=== PATIENT | female | born 1980 | race Caucasian/White ===

== ENCOUNTER 2019-08-15 12:13 | Inpatient (IN) | payer OTHER ==
[~2019-08-15] VITALS: Ht 177.8 cm; Wt 108.0 kg
[~2019-08-15 12:13] MED LIST: BETA15CR5 TP
[2019-08-15] MEDS ORDERED: LACTATED RINGERS 1,000 ML IV ONE (13:05)
[2019-08-15] MEDS ORDERED: CHLORHEXIDINE 15 ML UDC MM STA (13:05)
[2019-08-15] MEDS ORDERED: CHLORHEXIDINE 15 ML UDC ONE (13:10)
[2019-08-15] MEDS ORDERED: MIDAZOLAM 1 MG/ML, 2ML ONE (14:39)
[2019-08-15] MEDS ORDERED: PROPOFOL 50 ML ONE ×2 (14:39→16:10)
[2019-08-15] MEDS ORDERED: FENTANYL PF 250 MCG/5ML ONE (14:39)
[2019-08-15] MEDS ORDERED: VASOPRESSIN 20 UNIT/ML, 1ML ONE (14:49)
[2019-08-15] MEDS ORDERED: METHYLENE BLUE 10 MG/ML 10ML ONE (14:49)
[2019-08-15] MEDS ORDERED: BUPIVACAINE/PF-EPI 0.5% 1:200K ONE (14:49)
[2019-08-15] MEDS ORDERED: INTERCEED 3 X 4 INCH DRESSING ONE (14:49)
[2019-08-15] MEDS ORDERED: SODIUM CHLORIDE 0.9% 50 ML ONE (14:56)
[2019-08-15] MEDS ORDERED: OXYcodone 5 MG/5 ML ORAL.SOL UDC PO PRN (15:00)
[2019-08-15] MEDS ORDERED: EPHEDRINE 50 MG/ML, 1ML IVPush PRN (15:00)
[2019-08-15] MEDS ORDERED: ONDANSETRON 2MG/ML, 2ML IVPush PRN (15:00)
[2019-08-15] MEDS ORDERED: EPHEDRINE 50 MG/ML, 1ML IM PRN (15:00)
[2019-08-15] MEDS ORDERED: DIPHENHYDRAMINE 50 MG/ML, 1ML IVPush PRN (15:00)
[2019-08-15] MEDS ORDERED: PROMETHAZINE 25 MG/ML, 1ML IVPush PRN (15:00)
[2019-08-15] MEDS ORDERED: ONDANSETRON 2MG/ML, 2ML ONE (16:09)
[2019-08-15] MEDS ORDERED: DEXAMETHASONE 4 MG/ML, 1ML ONE (16:10)
[2019-08-15] MEDS ORDERED: ROCURONIUM 10MG/ML,5ML ONE (16:10)
[2019-08-15] MEDS ORDERED: SUCCINYLCHOLINE 20 MG/ML, 10ML ONE (16:10)
[2019-08-15] MEDS ORDERED: PROPOFOL 10 MG/ML, 20ML ONE ×2 (17:12)
[2019-08-15] MEDS ORDERED: OXYcodone 5 MG/5 ML ORAL.SOL UDC ONE (18:05)
[2019-08-15] MEDS ORDERED: MEPERIDINE/PF 50 MG/ML ONE (18:05)
[2019-08-15] MEDS: MEPERIDINE/PF 25MG/0.5ML IVPush PRN ×2 (18:09→18:26)
[2019-08-15] MEDS ORDERED: FENTANYL PF 100 MCG/2ML ONE (18:32)
[2019-08-15] MEDS: FENTANYL PF 100 MCG/2ML IV PRN ×2 (18:38→18:51)
[2019-08-15] MEDS ORDERED: HYDROmorphone 1 MG/ML, 1ML INJ ONE (19:03)
[2019-08-15] MEDS: HYDROmorphone 1 MG/ML, 1ML INJ IVPush PRN ×2 (19:06→19:14)
[2019-08-15 20:00] VITALS: BP 132/85
[2019-08-15] MEDS ORDERED: ACETAMINOPHEN 325 MG TABLET PO PRN (21:00)
[2019-08-15] MEDS ORDERED: ACETAMINOPHEN 650 MG SUPP PR PRN (21:00)
[2019-08-15] MEDS ORDERED: morphine SULFATE 10 MG/ML, 1ML IV PRN (21:00)
[2019-08-15] MEDS: POTASSIUM CHLORIDE 20 MEQ in LACTATED RINGERS 1,000 ML IV SCH (21:47)
[2019-08-15] MEDS: KETOROLAC 30 MG/1 ML IV PRN (22:02)
[2019-08-15] MEDS: OXYcodone/APAP 5/325MG TABLET PO PRN (22:29)
[2019-08-16 00:17] VITALS: BP 117/77
[2019-08-16] MEDS: OXYcodone/APAP 5/325MG TABLET PO PRN ×4 (02:24→16:34)
[2019-08-16 03:43] VITALS: BP 108/66
[2019-08-16] MEDS: KETOROLAC 30 MG/1 ML IV PRN ×3 (04:06→17:26)
[2019-08-16] MEDS: POTASSIUM CHLORIDE 20 MEQ in LACTATED RINGERS 1,000 ML IV SCH ×2 (06:53→16:34)
[2019-08-16 07:12] VITALS: BP 111/69
[2019-08-16 13:53] VITALS: BP 108/59
[2019-08-16] MEDS ORDERED: OXYcodone/APAP 5/325MG PO (17:38)
== END 2019-08-16 17:56 | disposition home or self-care (01) | DRG 743 ==
LOC: ORIP 12:37 → EDSTATUS 14:30 → 4NE 20:15
PROVIDERS: ADMIT Obstetrics & Gynecology Reproductive Endocrinology; ATTEND Obstetrics & Gynecology Reproductive Endocrinology
PROC: 0UB90ZZ Excision of Uterus, Open Approach (ICD-10-PCS; principal; 2019-08-15 14:30)
DX: D25.9 Leiomyoma of uterus, unspecified (principal)
CPT/HCPCS: 36415; 85014; 85018; 88305; G0378; J1100; J1170; J1885; J2175; J2250; J2405; J2704; J3010; J3480; C1765; J0330; J7120; Q9968; U0001